=== PATIENT | male | born 1990 | race Caucasian/White ===

== ENCOUNTER 2018-02-05 15:41 | Emergency (ER) | payer OTHER ==
[2018-02-05 15:50] VITALS: BP 138/85
[2018-02-05] MEDS ORDERED: IBUPROFEN 800 MG TABLET PO STA (16:08)
[2018-02-05] MEDS ORDERED: HYDROcod/ACETAM 5/325 MG TABLET PO STA (16:08)
--- NOTE | 2018-02-05 16:10 | ED Physician Documentation ---
PD HPI BACK INJURY - Stated complaint Stated Complaint: LOWER BACK PX - History obtained from History obtained from: Patient - History of Present Illness Location: Lower Type of injury: Twist (chair he was sitting in broke and he fell backward and now bad low back pain. No history of back issues, no weakness, numbness, or tingling, no saddle anesthesia or incontinence.) Where injury occurred: Work ([employer]) Timing - onset: Today Review of Systems Constitutional: reports: Reviewed and negative Cardiac: reports: Reviewed and negative Respiratory: reports: Reviewed and negative PD PAST MEDICAL HISTORY - Present Medications Home Medications: Ambulatory Orders Medication Instructions Recorded Confirmed Cyclobenzaprine [Flexeril] 10 mg PO TID PRN #10 tablet 02/05/18 HYDROcod/ACETAM 5/325 [[place] 5/325] 1 - 2 ea PO Q6H PRN #10 tablet 02/05/18 Ibuprofen [Motrin] 800 mg PO Q8H PRN #30 tablet 02/05/18 PD ED PE NORMAL - Vitals Vital signs reviewed: Yes - General General: Alert and oriented X 3, No acute distress - Back Back: Other (TTP about L4) - Extremities Extremities: Other (The patient has equal and normal Achilles and patellar reflexes bilaterally. Normal sensation in all areas of the legs. Patient denies saddle anesthesia. Normal strength in flexion-extension at the ankles, knees, and flexion of the hips.) - Neuro Neuro: Alert and oriented X 3, Normal speech - Psych Psych: Normal mood, Normal affect Results - Vitals Vitals: Vital Signs - 24 hr 02/05/18 15:48 Temperature 36.7 C Heart Rate 92 Respiratory 16 Rate Blood Pressure 138/85 H O2 Saturation 99 Oxygen O2 Source Room air - Rads (name of study) L spine XR Radiology: EMP read contemporaneously (normal) PD MEDICAL DECISION MAKING - Sepsis Event Vital Signs: Vital Signs - 24 hr 02/05/18 15:48 Temperature 36.7 C Heart Rate 92 Respiratory 16 Rate Blood Pressure 138/85 H O2 Saturation 99 Oxygen O2 Source Room air Departure - Departure Disposition: 01 Home, Self Care Clinical Impression: Back pain Qualifiers: Back pain location: low back pain Chronicity: acute Back pain laterality: left Sciatica presence: without sciatica Qualified Code(s): M54.5 - Low back pain Condition: Good Record reviewed to determine appropriate education?: Yes Instructions: ED Neck Back Pain General Prescriptions: Cyclobenzaprine [Flexeril] 10 mg PO TID PRN #10 tablet PRN Reason: Pain HYDROcod/ACETAM 5/325 [[place] 5/325] 1 - 2 ea PO Q6H PRN #10 tablet PRN Reason: Pain Ibuprofen [Motrin] 800 mg PO Q8H PRN #30 tablet PRN Reason: PAIN &/OR FEVER Comments: Call your doctor to arrange a follow-up appointment, make the next available appointment. In the interim, return anytime if worse or if new symptoms develop. Your blood pressure was elevated today on check into the emergency department. This does not mean that you have hypertension, it is a common phenomenon to come to the emergency department and have elevated blood pressure. I recommend that you see your primary care physician within the week to have it rechecked when you are feeling better. Do not drink or drive while taking narcotic pain medication. Note that many narcotic pain relievers also contain Tylenol/acetaminophen. Please ensure that your total dose of acetaminophen from all sources does not exceed 3 g (3000 mg) per day. You may get constipated while on this medication. Take a stool softener such as Colace twice a day while you are on it. Also add an lfmg-cjf-uhzlpod laxative such as senna or MiraLAX on any day that you do not have a bowel movement. If you received a narcotic pain medication or sedative while in the emergency department, do not drive for the next 24 hours. Forms: Activity restrictions
--- NOTE | 2018-02-05 16:43 | XRAY Report ---
Procedure Date: 02/05/2018 Accession Number: [id number] / [id number] Procedure: XR - Lumbar Spine 2 View CPT Code: FULL RESULT: EXAM: LUMBOSACRAL SPINE RADIOGRAPHY EXAM DATE: 02/05/2018 04:24 PM. CLINICAL HISTORY: Back inj. COMPARISONS: None. TECHNIQUE: 2 views. FINDINGS: Alignment: Within normal limits. No spondylolisthesis or scoliosis. Bones: Five tby-hxs-yfscxhi lumbar vertebral bodies are present. No acute fractures or suspicious bone lesions. Disks: Disk heights are maintained. Facets: No significant degenerative changes. Sacroiliac Joints: Unremarkable. Soft Tissues: The visualized bowel gas pattern is unremarkable. IMPRESSION: No radiographic evidence for acute disease. RADIA
== END 2018-02-05 17:08 | disposition home or self-care (01) ==
LOC: ED 15:41
DX: M54.5 Low back pain (principal); R03.0 Elevated blood-pressure reading, without diagnosis of hypertension; W07.XXXA Fall from chair, initial encounter; Y99.0 Civilian activity done for income or pay
CPT/HCPCS: 72100; 99283; A9270

== ENCOUNTER 2018-05-20 13:56 | Emergency (ER) | payer OTHER ==
[2018-05-20 14:05] VITALS: BP 142/83
--- NOTE | 2018-05-20 15:08 | ED Physician Documentation ---
History of Present Illness - Stated complaint Stated Complaint: SIDE PX - Chief complaint Chief Complaint: Abd Pain - Additonal information Additional information: hx from pt painful lump to left abd wall otherwise well Review of Systems Constitutional: denies: Fever GI: reports: Abdominal Pain Skin: reports: Other (lump) PD PAST MEDICAL HISTORY - Past Medical History Past Medical History: No Cardiovascular: None Respiratory: None Neuro: None Endocrine/Autoimmune: None GI: None : None HEENT: None Psych: None Musculoskeletal: None Derm: None - Past Surgical History Past Surgical History: No - Present Medications Home Medications: Ambulatory Orders Medication Instructions Recorded Confirmed Methocarbamol 500 mg PO DAILY 05/20/18 05/20/18 Naproxen 375 mg ORAL DAILY 05/20/18 05/20/18 - Allergies Allergies/Adverse Reactions: Allergies Allergy/AdvReac Type Severity Reaction Status Date / Time No Known Drug Allergies Allergy Verified 05/20/18 14:05 - Social History Does the pt smoke?: No Smoking Status: Former smoker Does the pt drink ETOH?: Yes ETOH Use: Beer Does the pt have substance abuse?: No - Immunizations Immunizations are current?: Yes - POLST Patient has POLST: No PD ED PE NORMAL - Vitals Vital signs reviewed: Yes - Cardiac Cardiac: RRR - Respiratory Respiratory: No respiratory distress - Abdomen Abdomen: Soft, Other (tender firm mobile firm subcut mass c/w lipoma, no reness dc head etc, deep) Results - Vitals Vitals: Vital Signs - 24 hr 05/20/18 14:02 Temperature 36.8 C Heart Rate 79 Respiratory 18 Rate Blood Pressure 142/83 H O2 Saturation 98 Oxygen O2 Source Room air PD MEDICAL DECISION MAKING - ED course ED course: bedside sono mm wall appears intact and there is a soft tissue subcut density think this is a lipoma - Sepsis Event Vital Signs: Vital Signs - 24 hr 05/20/18 14:02 Temperature 36.8 C Heart Rate 79 Respiratory 18 Rate Blood Pressure 142/83 H O2 Saturation 98 Oxygen O2 Source Room air Departure - Departure Disposition: 01 Home, Self Care Clinical Impression: Lipoma Qualifiers: Lipoma location: trunk Qualified Code(s): D17.1 - Benign lipomatous neoplasm of skin and subcutaneous tissue of trunk Condition: Good Instructions: ED Lipoma Follow-Up: Etienne Aaron MD [Provider Admit Priv/Credential] - Comments: If this lump continues to bother you, make an appointment at the surgical office to discuss removal Else motrin and tylenol as needed for discomfort Return is red draining etc as we discussed
[2018-05-20] MEDS ORDERED: IBUPROFEN 400 MG TABLET PO STA (15:16)
== END 2018-05-20 15:26 | disposition home or self-care (01) ==
LOC: ED 13:56
DX: D17.1 Benign lipomatous neoplasm of skin and subcutaneous tissue of trunk (principal); Z87.891 Personal history of nicotine dependence
CPT/HCPCS: 99281; 99283; A9270